=== PATIENT | female | born 1950 | race Caucasian/White ===

== ENCOUNTER 2018-12-27 07:54 | Day surgery (SDC) | payer MEDICARE, OTHER ==
[~2018-12-27 07:54] MED LIST: RADIAL COCKTAIL SYRINGE 10 ML IV PRN
[2018-12-27] MEDS ORDERED: ASPIRIN 325 MG TABLET ONE (08:43)
[2018-12-27] MEDS ORDERED: LIDOCAINE 1% INJ-PF (10 MG/ML) 30 ML SDV ONE (08:43)
[2018-12-27] MEDS ORDERED: DIPHENHYDRAMINE HCL 25 MG CAPSULE ONE (08:43)
[2018-12-27] MEDS ORDERED: DIAZEPAM 5 MG TABLET ONE (08:43)
[2018-12-27] MEDS ORDERED: HEPARIN SODIUM,PORCINE/NS/PF 2,000 UNIT/1,000 ML RTUINJ IV ONE (08:43)
[2018-12-27] MEDS ORDERED: HEPARIN SOD (PORCINE) 1,000 UNIT/ML 10 ML VIAL ONE (08:46)
[2018-12-27] MEDS ORDERED: FENTANYL CITRATE INJ/PF 100 MCG/2 ML AMPUL ONE (08:46)
[2018-12-27] MEDS ORDERED: MIDAZOLAM 2 MG/2 ML INJ ONE (08:46)
--- NOTE | 2018-12-27 10:23 | Operative Report ---
Operative Report DATE OF SURGERY: 12/27/18 PREOPERATIVE DIAGNOSIS: Chest pain coronary artery disease POSTOPERATIVE DIAGNOSIS: Noncritical CAD OPERATION: Left heart cath coronary angiography left ventriculography ANESTHESIA: Moderate Sedation PROCEDURE: After informed consent was obtained the patient was brought to the cardiac catheterization lab attempted right radial access was unsuccessful there was significant radial artery spasm in the guidewire could not be advanced the procedure was terminated from the wrist and the right femoral region was anesthetized and the procedure performed without difficulty. Left ventriculography and selective coronary angiography was performed. Conscious sedation was initiated monitor maintained during the procedure with a start time of 937 completion time of 1008 for conscious sedation time of 31 minutes of total of 1 mg of Versed was administered 100 mcg of fentanyl was given for conscious sedation Hemodynamic data aortic pressure at the beginning of the case is 126/55 post ventriculography LV pressure is 112/8 aortic pressure pullbacks 114/53 there is no gradient across the aortic valve Coronary angiography left main is normal LAD: The LAD has luminal irregularities no critical focal stenosis are seen Circumflex the circumflex has a calcified stenosis that is in the 20 to 30% range in the midportion of this vessel otherwise the circumflex looks normal. Right coronary artery: The right coronary artery is a dominant vessel supplying the PDA and posterolateral once again luminal irregularities are seen with no critical focal stenosis. Left ventriculography: Left ventriculography was performed in standard RIZZO projections demonstrates normal left ventricular function normal regional wall motion no evidence of mitral regurgitation and normal ascending aortic root Impression: 1. Normal left ventricular function 2. Noncritical coronary disease 3. No evidence of valvular heart disease Please copy this Dr. Bao Anderson
[2018-12-27 14:04] VITALS: BP 126/83
[2018-12-28] MEDS ORDERED: ASPIRIN 325 MG TABLET PO PRN (05:00)
[2018-12-28] MEDS ORDERED: DIAZEPAM 5 MG TABLET PO PRN (05:00)
[2018-12-28] MEDS ORDERED: DIPHENHYDRAMINE HCL 25 MG CAPSULE PO PRN (05:00)
== END 2018-12-27 13:55 | disposition home or self-care (01) ==
LOC: CCL 07:54
PROVIDERS: ATTEND Internal Medicine Cardiovascular Disease
DX: I20.9 Angina pectoris, unspecified (principal); Z00.00 Encounter for general adult medical examination without abnormal findings; R07.9 Chest pain, unspecified; E78.01 Familial hypercholesterolemia; I10 Essential (primary) hypertension; E78.1 Pure hyperglyceridemia; Z87.891 Personal history of nicotine dependence; E55.9 Vitamin D deficiency, unspecified; Z79.899 Other long term (current) drug therapy
CPT/HCPCS: 93458; C1894; J2250; A9270 ×3; J3010; J3490 ×4; J1644